=== PATIENT | male | born 1960 | race Caucasian/White ===

== ENCOUNTER → 2017-02-15 | Day surgery (SDC) | payer OTHER ==
[~2017-02-15] MED LIST: ADVAIR 250-501 EACH IH; ALBUTEROL17 GM INH; ALFUZOSIN HCL E10 MG PO; ASPIRIN EC81 M1 PO; COLESTIPOL HCL1 G PO; COREG3.125 MG PO; COZAAR100 MG PO; DULERA 200 MCG/13 GM IH; IBUPROFEN400 MG PO; LIPITOR40 MG PO; LISINOPRIL-HCTZ1 T19 PO; LISINOPRIL-HCTZ1 T20 PO; NIACIN500 M2 PO; NITROGLYCERIN0.4 MG SL; NORVASC2.5 MG PO; PROTONIX PO; ROBAXIN 750750 M1 PO; SIMVASTATIN10 MG PO; SPIRIVA18 MCG INH; SYMBICORT INH; WELCHOL625 MG PO; WELLBUTRIN XL150 MG PO
--- NOTE | ~2017-02-15 | OR ---
Unit #: [id number] #: [id number] Patient: JAMES WORKMAN [id number] [address] [address] [id number] MR#: [id number] NAME: JAMES WORKMAN. ROOM: Date of Procedure: 02/15/2017 Admission Date: 02/15/2017 Surgeon: Benny Vega M.D. : 1960 Attending Physician: Benny Veag M.D. Referring Physician: Benny Vega M.D. Primary Care Physician: Anil Donahue M.D. OPERATIVE REPORT PREOPERATIVE DIAGNOSES 1. Personal history of Dumont esophagus. 2. Personal history of colonic polyps. The patient has come for surveillance upper endoscopy and a colonoscopy. PROCEDURES PERFORMED Upper gastrointestinal endoscopy and biopsy as well as colonoscopy with polypectomy. POSTOPERATIVE DIAGNOSES For upper endoscopy: 1. The patient had short segment of Dumont esophagus. Appropriate biopsies were obtained and sent for histology to look for any evidence of dysplasia. 2. Mild prepyloric antral erosive gastritis and a biopsy was obtained from the antrum for CLOtest. 3. Rest of the examination up to third part of duodenum was normal. For colonoscopy: 1. A single sessile polyp in the proximal descending colon removed using snare polypectomy. The polyp was about 5 to 6 mm in size and it was retrieved and sent for histology. 2. Mild sigmoid and descending colon diverticulosis. 3. Rest of the examination up to cecum and terminal ileum was normal. The quality of the prep was good except in the left colon, where some vegetative stool residue was seen. RECOMMENDATIONS 1. Follow up the results of polyp histology and biopsies. 2. The patient will be followed up in the office in 6 months' time. We will continue on Protonix once a day. 3. Repeat colonoscopy in 5 years. 4. Repeat upper endoscopy in 2 years. SEDATION USED MAC. DESCRIPTION OF PROCEDURE Following detailed explanation of the potential risks and complications of an upper endoscopy and a colonoscopy, namely perforation, bleeding, and complication related to sedation, the patient was brought to GI lab and laid in the left lateral decubitus position. Lubricated tip of the Olympus video upper endoscope was passed through the bite block into the Unit #: [id number] #: [id number] Patient: JACINTA,JAMES A proximal esophagus under direct vision. The entire esophageal mucosa was examined and the patient was noted to have evidence of Dumont esophagus. This was noted in the past. The Dumont segment was about 2 cm in length. No esophagitis was noted. The scope was then advanced into the gastric cavity and the latter was insufflated. Mucosa of the fundus, body, and antrum was examined and mild prepyloric antral erythema erosions were noted indicating antral gastritis. Pylorus was intubated with visualization of the normal duodenal bulb and second and third part of the duodenum. Upon withdrawal and retroflexion, incisura, cardia, and greater curve was examined and a biopsy was obtained from the antrum for CLOtest. The scope was then withdrawn in the distal esophagus. Multiple biopsies were obtained from the distal esophageal mucosa and sent for histology to look for any evidence of dysplasia. The entire esophageal mucosa was examined all the way up to pharynx. No additional findings were noted. The examination table was then turned by 180 degrees and the patient positioned for a colonoscopy. A digital rectal examination was performed, which was normal. Lubricated tip of the Olympus video colonoscope was inserted through the anus and advanced under direct vision. The scope was advanced past rectosigmoid into descending colon. Scant small diverticula were seen in this area. In addition, some solid residue was also noted in this area. The scope tip was then navigated all the way up to cecum with visualization of the ileocecal valve and the appendiceal orifice. Preparation was good in the cecum and right colon and transverse colon, but in the left colon, there was some residue which had to be washed frequently. Successive segments of the colonic mucosa were examined upon withdrawal. The patient noted a single sessile polyp in the proximal descending colon. This was removed using snare polypectomy. It was about 6 mm in size. It was retrieved and sent for histology. No additional polyps were noted. Other than the scant diverticula seen in the left side, no other abnormalities were found. The patient did not have any hemorrhoids at anal verge. He tolerated the procedure without any postprocedure complications. Dictated byAnni Hylton TD: 02/15/2017 21:55 JOB #: [id number] OPERATIVE REPORT X Benny Vega MD PROCEDURE OPERATIVE NOTE
== END | disposition home or self-care (01) ==
LOC: COPS 11:40
PROVIDERS: Internal Medicine Gastroenterology
PROC: 0DB78ZX Excision of Stomach, Pylorus, Via Natural or Artificial Opening Endoscopic, Diagnostic (ICD-10-PCS; principal; 2017-02-15 13:00)
PROC: 0DBM8ZX Excision of Descending Colon, Via Natural or Artificial Opening Endoscopic, Diagnostic (ICD-10-PCS; 2017-02-15 13:00)
DX: K22.70 Barrett's esophagus without dysplasia (principal); Z12.11 Encounter for screening for malignant neoplasm of colon; K29.60 Other gastritis without bleeding; K21.0 Gastro-esophageal reflux disease with esophagitis; D12.4 Benign neoplasm of descending colon; K57.30 Diverticulosis of large intestine without perforation or abscess without bleeding; I10 Essential (primary) hypertension; I25.10 Atherosclerotic heart disease of native coronary artery without angina pectoris; J43.9 Emphysema, unspecified; I49.9 Cardiac arrhythmia, unspecified; Z79.899 Other long term (current) drug therapy; Z88.8 Allergy status to other drugs, medicaments and biological substances
CPT/HCPCS: 87077; 88305; J2250